=== PATIENT | male | born 2000 | race African-American/Black ===

== ENCOUNTER 2025-05-11 15:34 | Emergency (ER) | payer MEDICAID ==
[~2025-05-11] VITALS: Ht 180.3 cm; Wt 76.0 kg
[2025-05-11 15:41] VITALS: O2SAT 99
[2025-05-11] MEDS: IBUPROFEN 800MG TABLET PO ONE (16:23)
[2025-05-11] MEDS: DOXYCYCLINE HYCLATE 100MG CAPSULE PO ONE (16:23)
[2025-05-11] MEDS ORDERED: DOXY100T2 MT (17:15)
[2025-05-11] MEDS ORDERED: IBUP-2030 MT (17:16)
[2025-05-11] MEDS ORDERED: ALBU18HF2 IH (17:21)
[2025-05-11 17:23] VITALS: BP 122/70; PULSE 92; RESP 16; TEMP 36.9; O2SAT 99
== END 2025-05-11 17:25 | disposition home or self-care (01) ==
LOC: ER 15:34
DX: R59.0 Localized enlarged lymph nodes (principal); J45.909 Unspecified asthma, uncomplicated
CPT/HCPCS: 74176; 99284

== ENCOUNTER 2025-05-16 08:54 | Emergency (ER) | payer MEDICAID ==
[~2025-05-16] VITALS: Ht 180.3 cm; Wt 82.0 kg
[~2025-05-16 08:54] MED LIST: ALBU18HF2 IH; DOXY100T2 MT; IBUP-2030 MT
[2025-05-16 09:13] VITALS: O2SAT 100
[2025-05-16] MEDS: CEFTRIAXONE SODIUM 500MG VIAL IM ONE (09:45)
[2025-05-16 10:23] LABS: BASOPHILS % 0.6 % (0.0-2.0); EOSINOPHILS % 6.6 % (0.0-5.0); HEMATOCRIT. 38.4 % (42.0-52.0); HEMOGLOBIN. 13.3 g/dL (14.0-18.0); LYMPHOCYTES % 32.2 % (20.0-50.0); MEAN PLATELET VOLUME 8.9 fl (7.4-10.4); MONOCYTES % 8.7 % (2.0-8.0); NEUTROPHILS % 51.9 % (40.0-76.0); PLATELET 332 x1000/uL (130-400); RED BLOOD CELL COUNT 4.55 mill/uL (4.7-6.1); RED CELL DISTRIBUTION WIDTH 13.5 % (11.6-14.6)
[2025-05-16 10:31] LABS: CLARITY URINE CLEAR (CLEAR); COLOR URINE YELLOW (YELLOW); SPECIFIC GRAVITY URINE 1.015 (1.005-1.030)
[2025-05-16 10:32] LABS: GLUCOSE URINE NEGATIVE (NEGATIVE); KETONES URINE NEGATIVE (NEGATIVE); LEUKOCYTE ESTERASE URINE NEGATIVE (NEGATIVE); NITRITE URINE NEGATIVE (NEGATIVE); OCCULT BLOOD URINE NEGATIVE (NEGATIVE); PH URINE 7.5 (4.5-8.0); PROTEIN URINE NEGATIVE (NEGATIVE); UROBILINOGEN URINE 1.0 E.U./dL (0.2-1.0)
[2025-05-16 10:37] LABS: CREATININE 0.9 mg/dL (0.6-1.3)
[2025-05-16 10:38] LABS: UREA NITROGEN BLOOD 6 mg/dL (9-23)
[2025-05-16 10:39] LABS: ASPARTATE AMINOTRANSFERASE 15 IU/L (<34)
[2025-05-16 10:40] LABS: BILIRUBIN DIRECT 0.3 mg/dL (<=3.0); BILIRUBIN TOTAL 0.9 mg/dL (0.1-1.0); PROTEIN TOTAL 7.8 g/dL (6.0-8.3)
[2025-05-16] MEDS ORDERED: AZIT500T8 MT (10:49)
[2025-05-16 11:31] VITALS: BP 124/78; PULSE 81; RESP 16; TEMP 37; O2SAT 100
[2025-05-19 04:09] LABS: CHLAMYDIA TRACHOMATIS NAA Negative (Negative); NEISSERIA GONORRHOEAE NAA Negative (Negative)
== END 2025-05-16 11:32 | disposition home or self-care (01) ==
LOC: ER 09:06
DX: I88.9 Nonspecific lymphadenitis, unspecified (principal); J45.909 Unspecified asthma, uncomplicated; Z79.899 Other long term (current) drug therapy
CPT/HCPCS: 99283; 86592; 87491; 87591; 80076; 80048; 81003; 85025; 36415; 96372; J0696